=== PATIENT | female | born 1960 | race Caucasian/White ===

== ENCOUNTER → 2016-07-26 | Outpatient (CLI) | payer BC, OTHER ==
--- NOTE | 2016-07-26 16:31 | REPMRS ---
Patient History The patient states she had a clinical breast exam in 07/2016. Patient is postmenopausal. No known family history of cancer. Digital Woman Screen Mammo: July 26, 2016 - Exam #: [id number] Bilateral CC and MLO view(s) were taken. Technologist: Miriam Silva Technologist Prior study comparison: March 23, 2015, digital woman screen mammo performed at [facility]. February 24, 2014, digital woman screen mammo performed at [facility]. October 24, 2012, digital woman screen mammo performed at [facility]. FINDINGS: There are scattered fibroglandular densities. There has been no change in the appearance of the mammogram from the prior studies. There is a mild amount of scattered fibroglandular density which is fairly symmetric. There is no interval development of dominant mass, architectural distortion, or clustered microcalcification suggestive of malignancy. ASSESSMENT: BI-RADS/ACR category 1 mammogram. Negative. Recommendation Routine screening mammogram in 1 year (for women over age 40). This mammogram was interpreted with the aid of an FDA-approved computer-aided dectection system. Electronically Signed By: Rosas Noonan MD 07/26/16 0667
== END ==
LOC: M WHC 15:26
PROVIDERS: ATTEND Nurse Practitioner Family
DX: Z12.31 Encounter for screening mammogram for malignant neoplasm of breast (principal)

== ENCOUNTER 2017-03-17 11:15 | Emergency (ER) | payer BC, OTHER ==
[~2017-03-17] VITALS: Ht 172.7 cm; Wt 111.4 kg
[2017-03-17] MEDS ORDERED: ASPI81TA85 PO (11:35)
[2017-03-17] MEDS ORDERED: LISI10TA4 (11:35)
[2017-03-17] MEDS ORDERED: TRIA25CR (11:35)
[2017-03-17] MEDS ORDERED: LEVO50TA5 (11:35)
[2017-03-17 11:51] LABS: BASO # 0.1 10^3/uL (0.0-0.2); EOS # 0.2 10^3/uL (0.0-0.50); EOS % 2.6 % (0.0-3.0); IMMATURE GRANULOCYTE % 0.2 % (0-0); LYMPH # 1.4 10^3/uL (1.5-4.5); LYMPH % 23.6 % (24.0-44.0); MEAN CORPUSCULAR HEMOGLOBIN 28.8 pg (27.0-33.0); MEAN CORPUSCULAR HGB CONC 32.8 g/dl (32.0-36.5); MEAN CORPUSCULAR VOLUME 87.8 fl (80.0-96.0); MONO # 0.6 10^3/uL (0.0-0.8); MONO % 9.1 % (0.0-5.0); NEUTROPHILS # 3.9 10^3/uL (1.8-7.7); NEUTROPHILS % 63.5 % (36.0-66.0); PLATELET COUNT, AUTOMATED 271 10^3/uL (150-450); RED CELL DISTRIBUTION WIDTH 13.4 % (11.5-14.5); WHITE BLOOD COUNT 6.1 10^3/uL (4.0-10.0)
--- NOTE | 2017-03-17 12:01 | REP ---
Chest one-view HISTORY: Syncope Comparison: 10/11/2008 The lungs are clear. The heart is normal in size. The pulmonary vasculature is normal in appearance. Impression: No acute disease. Signed by Bigg Serrano MD 03/17/2017 11:54 A
[2017-03-17 12:11] LABS: ANION GAP 5 MEQ/L (8-16); BLOOD UREA NITROGEN 16 MG/DL (7-18); CALCIUM LEVEL 9.3 MG/DL (8.5-10.1); CARBON DIOXIDE LEVEL 29 MEQ/L (21-32); CHLORIDE LEVEL 107 MEQ/L (98-107); CREATININE FOR GFR 0.85 MG/DL (0.55-1.02); FREE T4 0.91 NG/DL (0.76-1.46); GLOMERULAR FILTRATION RATE > 60.0 (>51); GLUCOSE, FASTING 106 MG/DL (70-105); MAGNESIUM LEVEL 1.9 MG/DL (1.8-2.4); SODIUM LEVEL 141 MEQ/L (136-145)
[2017-03-17] MEDS ORDERED: SUCRALFATE SUSP 1GM/10ML UD PO ONE (12:45)
[2017-03-17] MEDS ORDERED: SUCR1SS PO (13:39)
[2017-03-17] MEDS ORDERED: holter monitor (15:03)
--- NOTE | 2017-03-17 15:11 | ECGEPIP ---
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
[2017-03-17 17:53] VITALS: BP 134/84
--- NOTE | 2017-03-19 09:11 | ECGEPIP ---
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
== END 2017-03-17 17:59 | disposition home or self-care (01) ==
LOC: M ED 11:15
DX: K21.9 Gastro-esophageal reflux disease without esophagitis (principal); I49.1 Atrial premature depolarization; I10 Essential (primary) hypertension; Z82.49 Family history of ischemic heart disease and other diseases of the circulatory system; Z79.899 Other long term (current) drug therapy; Z79.82 Long term (current) use of aspirin; Z88.8 Allergy status to other drugs, medicaments and biological substances; Z91.040 Latex allergy status; J30.89 Other allergic rhinitis; Z91.048 Other nonmedicinal substance allergy status

== ENCOUNTER → 2017-03-26 | Outpatient (CLI) | payer BC, OTHER ==
[~2017-03-26] MED LIST: ASPI81TA85 PO; LEVO50TA5; LISI10TA4; SUCR1SS PO; TRIA25CR; holter monitor
--- NOTE | 2017-03-31 10:04 | HOLTMON ---
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
== END ==
LOC: M EKG 15:29
PROVIDERS: ATTEND Emergency Medicine
DX: R55 Syncope and collapse (principal)

== ENCOUNTER → 2017-10-03 | Outpatient (CLI) | payer BC | LOC: M WHC 15:35 | DX: Z12.31 Encounter for screening mammogram for malignant neoplasm of breast (principal) | CPT/HCPCS: 77067 ==

== ENCOUNTER → 2018-10-10 | Outpatient (CLI) | payer BC, OTHER ==
--- NOTE | 2018-10-15 14:45 | SLEEPCENT ---
DATE OF PROCEDURE: 10/10/2018 ORDERED BY: Dr. Yip Nocturnal polysomnography was performed for evaluation of sleep physiology in this patient with a history of snoring and an abnormal nocturnal oximetry tracing who has comorbidities of hypertension. 8 hours and 21 minutes of data were reviewed. There were 466 minutes of sleep identified. Sleep latency was quite short at 1.5 minutes. Rapid eye movement (REM) latency was normal at 92 minutes. Sleep architecture was fairly well-preserved with 5 REM cycles. Overall sleep efficiency was 94.5%. The electrocardiogram showed sinus rhythm with an average heart rate of 75 beats per minute. Rate ranged 60-90 beats per minute. Electroencephalogram (EEG) showed some coarsening alpha intrusion into non REM stages, otherwise reasonably normal waveforms for awake and sleep. There were 91 respiratory events identified of 10 seconds in duration or greater for an apnea-hypopnea index of 11.70. The events were primarily obstructive, more frequent but not exclusive to stage REM and not posturally related. Arousals from respiratory events occurred four times per hour and oxygen desaturations were seen into the upper 70s. There was some activity in the limb leads but limb movement arousals were few. Significant snoring was noted. Remaining measures of sleep physiology were normal. IMPRESSION: Obstructive sleep apnea syndrome (G47.33). Apnea-hypopnea index 11.7. RECOMMENDATIONS: The patient should be encouraged to return to the sleep disorder center for pressure therapy. In the interim, alcohol and sedative avoidance should be practiced and caution exercised during the operation of motor vehicles.
== END ==
LOC: M SLEEP 19:34
PROVIDERS: ATTEND Internal Medicine Pulmonary Disease
DX: G47.30 Sleep apnea, unspecified (principal)

== ENCOUNTER → 2018-11-21 | Outpatient (CLI) | payer BC, OTHER ==
--- NOTE | 2018-11-24 22:31 | SLEEPCENT ---
DATE OF PROCEDURE: 11/21/2018 ORDERED BY: Dr. Yip Nocturnal polysomnography was performed for the titration of pressure therapy in this patient with obstructive sleep apnea syndrome. Apnea-hypopnea index 11.7. For testing a ResMed Sendy View full face mask of small size was used, 4 cm of water pressure were applied to the circuit and the lights were extinguished. 7 hours and 1 minute of data were reviewed. There were 367 minutes of sleep identified. Sleep latency was short at 6.5 minutes. Rapid eye movement (REM) latency was short at 51 minutes. Sleep architecture was good with three REM cycles. Overall sleep efficiency 89.1%. The electrocardiogram showed a sinus rhythm, minor respiratory variability, average heart rate 68 beats per minute. EEG showed normal waveforms for awake and sleep stages. No focal events were identified. Respiratory events were fully palliated with continuous positive airway pressure (CPAP) at a pressure of +13 and remaining measures of sleep physiology were normal. IMPRESSION: Obstructive sleep apnea syndrome (G47.33). RECOMMENDATIONS: Nightly use of pressure therapy 13 cm of water.
== END ==
LOC: M SLEEP 19:32
PROVIDERS: ATTEND Internal Medicine Pulmonary Disease
DX: G47.33 Obstructive sleep apnea (adult) (pediatric) (principal)

== ENCOUNTER → 2018-12-04 | Outpatient (CLI) | payer BC ==
--- NOTE | 2018-12-04 16:34 | REPMRS ---
Patient History The patient states she had a clinical breast exam in 11/2018. Patient is postmenopausal. No known family history of cancer. No Hormone Replacement Therapy 3D TOMOSYNTHESIS WAS PERFORMED. The [facility] lifetime risk for breast cancer is 8.0%. Digital Woman Screen Mammo: December 04, 2018 - Exam #: [id number] Bilateral CC and MLO view(s) were taken. Technologist: Kusum Garcia, Technologist Prior study comparison: October 03, 2017, digital woman screen mammo performed at [facility]. July 26, 2016, digital woman screen mammo performed at [facility]. FINDINGS: There are scattered fibroglandular densities. There has been no change in the appearance of the mammogram from the prior studies. There is a mild amount of residual fibroglandular tissue which is fairly symmetric. There is no interval development of dominant mass, architectural distortion, or clustered microcalcification suggestive of malignancy. Assessment: BI-RADS/ACR category 1 mammogram. Negative Mammogram. Recommendation Routine screening mammogram in 1 year (for women over age 40). This mammogram was interpreted with the aid of an FDA-approved computer-aided dectection system. Electronically Signed By: Angelito Quesada MD 12/04/18 [id number]
== END ==
LOC: M WHC 15:09
PROVIDERS: ATTEND Nurse Practitioner Family
DX: Z12.31 Encounter for screening mammogram for malignant neoplasm of breast (principal); Z78.0 Asymptomatic menopausal state

== ENCOUNTER → 2020-06-07 | Outpatient (CLI) | payer BC, OTHER ==
[~2020-06-07] MED LIST changes: -ASPI81TA85 PO; +ASPI81TA86 PO
--- NOTE | 2020-06-07 16:30 | REPMRS ---
Patient History The patient states she has not had a clinical breast exam in over a year. Patient is postmenopausal. No known family history of cancer. No Hormone Replacement Therapy 3D TOMOSYNTHESIS WAS PERFORMED. [facility] Volpara breast density a. Digital Woman Screen Mammo: June 07, 2020 - Exam #: [id number] Bilateral CC and MLO view(s) were taken. Technologist: Heather Grimaldo, Technologist Prior study comparison: December 04, 2018, bilateral digital woman screen mammo performed at [facility]. October 03, 2017, digital woman screen mammo performed at [facility]. FINDINGS: There are scattered fibroglandular densities. There has been no change in the appearance of the mammogram from the prior studies. There is a mild amount of residual fibroglandular tissue which is fairly symmetric. There is no interval development of dominant mass, architectural distortion, or clustered microcalcification suggestive of malignancy. Assessment: BI-RADS/ACR category 1 mammogram. Negative Mammogram. Recommendation Routine screening mammogram in 1 year (for women over age 40). This mammogram was interpreted with the aid of an FDA-approved computer-aided dectection system. Electronically Signed By: Angelito Quesada MD 06/07/20 6559
== END ==
LOC: M WHC 15:36
PROVIDERS: ATTEND Physician Assistant
DX: Z12.31 Encounter for screening mammogram for malignant neoplasm of breast (principal); Z78.0 Asymptomatic menopausal state

== ENCOUNTER → 2022-05-14 | Outpatient (CLI) | payer BC, OTHER ==
[~2022-05-14] MED LIST changes: +ALLE60TA69 PO; +GLUC1TAB58 PO; -LEVO50TA5; +LEVO50TA5 PO; +LISI10TA22 PO; -LISI10TA4
== END ==
LOC: M LABSMTC 09:45
PROVIDERS: ATTEND Anesthesiology
DX: Z01.812 Encounter for preprocedural laboratory examination (principal); Z11.52 Encounter for screening for COVID-19

== ENCOUNTER 2022-05-18 11:12 | Day surgery (SDC) | payer BC, OTHER ==
[~2022-05-18] VITALS: Ht 172.7 cm; Wt 114.7 kg
[~2022-05-18 11:12] MED LIST changes: +NS 1,000 ML IV ONE
[2022-05-18] MEDS ORDERED: propofoL 200 MG/20 ML VIAL As Ordered ONE ×2 (11:20→13:02)
[2022-05-18 13:30] VITALS: BP 153/85
== END 2022-05-18 13:40 | disposition home or self-care (01) ==
LOC: M OPP 11:12
PROVIDERS: ATTEND Surgery
DX: R19.5 Other fecal abnormalities (principal); I49.3 Ventricular premature depolarization; I10 Essential (primary) hypertension; E03.9 Hypothyroidism, unspecified; M19.90 Unspecified osteoarthritis, unspecified site; G47.30 Sleep apnea, unspecified; Z99.89 Dependence on other enabling machines and devices; Z86.16 Personal history of COVID-19; Z79.52 Long term (current) use of systemic steroids; Z79.82 Long term (current) use of aspirin; Z79.899 Other long term (current) drug therapy; Z91.09 Other allergy status, other than to drugs and biological substances; Z91.040 Latex allergy status

== ENCOUNTER → 2022-07-02 | Outpatient (CLI) | payer BC, OTHER ==
[~2022-07-02] MED LIST changes: -NS 1,000 ML IV ONE
== END ==
LOC: M WHC 09:40
PROVIDERS: ATTEND Family Medicine
DX: Z12.31 Encounter for screening mammogram for malignant neoplasm of breast (principal)

== ENCOUNTER → 2023-07-09 | Outpatient (CLI) | payer BC, OTHER | LOC: M WHC 09:57 | PROVIDERS: ATTEND Nurse Practitioner Adult Health | DX: Z12.31 Encounter for screening mammogram for malignant neoplasm of breast (principal) ==

== ENCOUNTER → 2024-07-10 | Outpatient (CLI) | payer MEDICARE, BC | LOC: M WHC 09:04 | PROVIDERS: ATTEND Nurse Practitioner Adult Health | DX: Z12.31 Encounter for screening mammogram for malignant neoplasm of breast (principal); R92.313 Mammographic fatty tissue density, bilateral breasts ==

== ENCOUNTER → 2024-09-03 | Outpatient (CLI) | payer MEDICARE, BC | LOC: M SLEEP HO 10:35 | PROVIDERS: ATTEND Internal Medicine Pulmonary Disease | DX: G47.33 Obstructive sleep apnea (adult) (pediatric) (principal) ==

== ENCOUNTER → 2024-09-21 | Outpatient (CLI) | payer MEDICARE, BC | LOC: M RAD 10:26 | PROVIDERS: ATTEND Nurse Practitioner Adult Health | DX: K80.20 Calculus of gallbladder without cholecystitis without obstruction (principal); K59.00 Constipation, unspecified ==